=== PATIENT | female | born 1990 | race African-American/Black ===

== ENCOUNTER 2016-07-16 13:41 | Emergency (ER) | payer OTHER ==
[~2016-07-16] VITALS: Ht 167.6 cm; Wt 57.1 kg
[~2016-07-16 13:41] MED LIST: BACTRIM,SEPT1 TABLET PO; BENAZEPRIL HCL10 MG PO; CARBAMAZEPINE200 MG PO; CIPROFLOXACIN500 M1 PO; DEPO-PROVER150 MG/ML IM; DESYREL100 MG PO; DIVALPROEX SOD500 M1 PO; ELAVIL25 MG PO; EXCEDRIN MIGRA1 EACH PO; FIORICET 50-301 EACH PO; FLEXERIL10 MG PO; GABAPENTIN300 MG PO; HYDROCODON-ACE1 EA11 PO; IBUPROFEN800 MG PO; IMITREX100 MG PO; IMITREX4 MG/0.5 M SC; IMITREX6 MG/0.5 M SC; IMITREX6 MG/0.52 SC; INDOCIN25 MG PO; LATUDA60 MG PO; LORTAB 5-325 M1 EACH PO; LYRICA50 MG PO; NAPROSYN500 MG PO; NORCO 5/3251 TABLET PO; PAMELOR25 MG PO; PERCOCET 10/1 TABLET PO; PREDNISONE20 MG PO; PROMETHAZINE HC25 M1 PO; QUETIAPINE FUM100 MG PO; QUETIAPINE FUM200 MG PO; QUETIAPINE FUM300 MG PO; REGLAN10 MG PO; SAPHRIS10 MG SL; SEROQUEL100 MG PO; SEROQUEL300 MG PO; SKELAXIN800 MG PO; STRATTERA40 MG PO; TIZANIDINE HCL2 M1 PO; TRAMADOL HCL50 MG PO; ULTRACET1 TABLET PO; VALIUM5 MG PO; [UNRECOGNIZED DRUG - OTHER] TP
[2016-07-16 15:29] LABS: HEMATOCRIT 45.2 % (36.0-46.0); MCH 29.1 PG (29.0-34.0); MCHC 32.5 G/DL (30.0-36.0); MCV 89.3 FL (83-99); MEAN PLAT.VOLUME 10.5 uM^3 (9.5-12.4); PLATELET COUNT 200 K/uL (156-360); RBC DIS.WIDTH-CV 12.9 % (11.8-14.6); RBC DIS.WIDTH-SD 41.8 % (39-53); RED BLOOD COUNT 5.06 M/uL (3.80-5.20)
[2016-07-16 15:37] LABS: CHLORIDE 105 mEq/L (99-109); POTASSIUM 4.3 mEq/L (3.7-5.4); SODIUM 139 mEq/L (136-147)
[2016-07-16 15:39] LABS: GLUCOSE 81 mg/dL (70-99)
[2016-07-16 15:41] LABS: ANION GAP 12 MEQ/L (2-14); TOTAL BILIRUBIN 0.6 mg/dL (0.0-1.0)
[2016-07-16 15:43] LABS: ALKALINE PHOSPHATASE 60 IU/L (3-129); GFR ESTIMATE (CALCULATED) > 59 mL/min/
[2016-07-16 15:44] LABS: UREA NITROGEN (BUN) 10 mg/dL (9-23)
[2016-07-16 15:53] LABS: QUANTITATIVE HCG < 4.0 MIU/ML
[2016-07-16] MEDS ORDERED: FIORICET,ESG1 TABLET PO (16:44)
[2016-07-16] MEDS ORDERED: ZOFRAN ODT8 MG PO (16:44)
[2016-07-16 17:30] LABS: ADD MIUA? YES; BILIRUBIN NEGATIVE; BLOOD NEGATIVE; COLOR YELLOW ((YELLOW)); GLUCOSE (STRIP) NEGATIVE; KETONES NEGATIVE; LEUKOCYTES TRACE; NITRITE NEGATIVE; PH, URINE 6.5 (5-8); PROTEIN (STRIP) TRACE; SPECIFIC GRAVITY 1.022 (1.000-1.030); UROBILINOGEN 0.2 MG/DL (0.2-1.0)
[2016-07-16 17:57] LABS: RED BLOOD CELLS NONE SEEN /HPF (0-5); WHITE BLOOD CELLS RARE /HPF (0-5)
[2016-07-16 17:58] LABS: BACTERIA RARE; CASTS NONE SEEN /LPF; CRYSTALS NONE SEEN; EPITHELIAL CELLS 1+; MUCUS NONE SEEN; UCUL ADDED? NO
[2016-07-16 18:23] VITALS: BP 154/74
== END 2016-07-16 18:32 | disposition home or self-care (01) ==
LOC: EME 13:41
DX: R51 Headache (principal); R10.30 Lower abdominal pain, unspecified; I10 Essential (primary) hypertension; F17.200 Nicotine dependence, unspecified, uncomplicated; Z88.0 Allergy status to penicillin
CPT/HCPCS: 80053; 81003; 84702; 85027; 99281; 99284; J0780; J1100; J1885; J7030

== ENCOUNTER 2016-08-23 03:48 | Emergency (ER) | payer OTHER ==
[~2016-08-23] VITALS: Ht 167.6 cm; Wt 59.0 kg
[~2016-08-23 03:48] MED LIST changes: +FIORICET,ESG1 TABLET PO; +ZOFRAN ODT8 MG PO
[2016-08-23 03:53] VITALS: BP 125/91
== END 2016-08-23 07:42 | disposition left against medical advice (07) ==
LOC: EME 03:48
DX: R51 Headache (principal); R11.2 Nausea with vomiting, unspecified; H53.149 Visual discomfort, unspecified; Z53.21 Procedure and treatment not carried out due to patient leaving prior to being seen by health care provider

== ENCOUNTER 2016-11-03 15:38 | Inpatient (IN) | payer OTHER ==
[~2016-11-03] VITALS: Ht 167.6 cm; Wt 53.8 kg
[2016-11-03 15:50] LABS: EOSINOPHIL (%) 0.5 % (0-5); IMMATURE GRANULOCYTE (%) 0.2 % (0.0-0.7); INSTRUMENT ABS NEUTROPHIL CT 5.9 K/uL; LYMPHOCYTE COUNT 1.7 K/uL (1.0-2.8); MCH 29.3 PG (29.0-34.0); MCHC 32.5 G/DL (30.0-36.0); MCV 90.1 FL (83-99); MEAN PLAT.VOLUME 9.5 uM^3 (9.5-12.4); MONOCYTE (%) 8.9 % (3-12); MONOCYTE COUNT 0.7 K/uL (0-0.8); NEUTROPHIL (%) 70.3 % (45-76); NEUTROPHIL COUNT 5.9 K/uL (1.8-6.4); PLATELET COUNT 208 K/uL (156-360); RBC DIS.WIDTH-CV 12.9 % (11.8-14.6); RBC DIS.WIDTH-SD 42.8 % (39-53); RED BLOOD COUNT 4.44 M/uL (3.80-5.20); WHITE BLOOD COUNT 8.4 K/uL (4.1-10.2)
[2016-11-03 16:01] LABS: CHLORIDE 106 mEq/L (99-109); POTASSIUM 3.2 mEq/L (3.7-5.4); SODIUM 138 mEq/L (136-147)
[2016-11-03 16:02] LABS: GLUCOSE 110 mg/dL (70-99)
[2016-11-03 16:04] LABS: ANION GAP 12 MEQ/L (2-14)
[2016-11-03 16:06] LABS: GFR ESTIMATE (CALCULATED) > 59 mL/min/; SERUM ETHYL ALCOHOL < 10 mg/dL
[2016-11-03 16:08] LABS: UREA NITROGEN (BUN) 10 mg/dL (9-23)
[2016-11-03 16:09] LABS: SALICYLATE < 5.0 MG/DL (15-30)
[2016-11-03 16:15] LABS: QUANTITATIVE HCG < 4.0 MIU/ML
[2016-11-03 18:33] LABS: BASE EXCESS -2.1 mEq/L (-3 to +3); BICARBONATE 22.3 mEq/L (22-26); CARBOXY HGB 3.8 % (0-5); COMMENTS - BLOOD GASES A+C+; DEVICE RA; PCO2 36 mm Hg (35-45); PO2 97 mm Hg (80-100); SITE RR
[2016-11-03 18:34] LABS: FI02 0.21 %; TOTAL RESP RATE 12 resp/min
[2016-11-03 19:26] LABS: ADD MIUA? YES; BILIRUBIN NEGATIVE; BLOOD NEGATIVE; COLOR YELLOW ((YELLOW)); GLUCOSE (STRIP) NEGATIVE; KETONES 5; LEUKOCYTES MODERATE; NITRITE NEGATIVE; PROTEIN (STRIP) NEGATIVE; SPECIFIC GRAVITY 1.008 (1.000-1.030); UROBILINOGEN 0.2 MG/DL (0.2-1.0)
[2016-11-03 19:34] LABS: COCAINE PRESUMPTIVE POSITIVE (150 ng/mL); PHENCYCLIDINE NEGATIVE (25 ng/mL); THC CANNABINOIDS PRESUMPTIVE POSITIVE (50 ng/mL)
[2016-11-03 19:35] LABS: AMPHETAMINE NEGATIVE (500 ng/mL); BARBITURATES NEGATIVE (200 ng/mL); BENZODIAZEPINES NEGATIVE (150 ng/mL); INTERNAL CONTROLS VALID? YES; METHADONE NEGATIVE (200 ng/mL); METHAMPHETAMINE NEGATIVE (500 ng/mL); OPIATES (MORPHINE) PRESUMPTIVE POSITIVE (100 ng/mL); OXYCODONE NEGATIVE (100 ng/mL); PROPOXYPHENE NEGATIVE (300 ng/mL); TRICYCLIC ANTIDEPRESSANTS PRESUMPTIVE POSITIVE (300 ng/mL)
[2016-11-03 19:36] LABS: ADD MEDTOX COMMENT Y
[2016-11-03 19:40] LABS: BACTERIA RARE /HPF; EPITHELIAL CELLS RARE /HPF; MUCUS NONE SEEN /LPF; RED BLOOD CELLS 0-5 /HPF (0-5); UCUL ADDED? NO; WHITE BLOOD CELLS 0-5 /HPF (0-5)
[2016-11-03 20:19] LABS: OPIATES QUANTITATIVE VALUE 0 NG/ML
[2016-11-04] MEDS ORDERED: BENAZEPRIL HCL5 MG PO (00:17)
[2016-11-04 00:49] VITALS: BP 124/57
[2016-11-04 08:03] VITALS: BP 95/48
[2016-11-04 15:39] VITALS: BP 126/58
[2016-11-05 07:53] VITALS: BP 106/57
[2016-11-05] MEDS ORDERED: BENAZEPRIL HCL5 MG PO (10:35)
== END 2016-11-05 10:55 | disposition home or self-care (01) | DRG 885 ==
LOC: EME 15:38 → EDOF 21:13 → 1WEST 21:13
PROVIDERS: Emergency Medicine
DX: F31.4 Bipolar disorder, current episode depressed, severe, without psychotic features (principal); G89.29 Other chronic pain; I10 Essential (primary) hypertension; F41.9 Anxiety disorder, unspecified; Z88.0 Allergy status to penicillin; M54.9 Dorsalgia, unspecified; R45.851 Suicidal ideations; F17.200 Nicotine dependence, unspecified, uncomplicated; F19.10 Other psychoactive substance abuse, uncomplicated; F60.9 Personality disorder, unspecified
CPT/HCPCS: 36600; 80048; 81003; 82803; 84702; 84999; 85025; 90837; 93005; 97150 GO; 97165 GO; 99281; 99285; G0480; J2310

== ENCOUNTER 2017-06-25 22:34 | Emergency (ER) | payer OTHER ==
[~2017-06-25] VITALS: Ht 170.2 cm; Wt 63.0 kg
[~2017-06-25 22:34] MED LIST changes: +BENAZEPRIL HCL5 MG PO
[2017-06-26] MEDS ORDERED: DIFLUCAN150 MG PO (00:35)
[2017-06-26] MEDS ORDERED: CLEOCIN300 MG PO (00:35)
[2017-06-26] MEDS ORDERED: ULTRAM50 MG PO (00:40)
[2017-06-26 00:50] VITALS: BP 136/90
== END 2017-06-26 00:54 | disposition home or self-care (01) ==
LOC: EXP 22:34 → EME 22:34 → EXP 06-26 00:54
PROC: 3E0T3BZ Introduction of Anesthetic Agent into Peripheral Nerves and Plexi, Percutaneous Approach (ICD-10-PCS; principal; 2017-06-25)
DX: K08.89 Other specified disorders of teeth and supporting structures (principal); Z88.0 Allergy status to penicillin
CPT/HCPCS: 99281; 99284

== ENCOUNTER 2017-07-31 19:56 | Emergency (ER) | payer OTHER ==
[~2017-07-31] VITALS: Ht 167.6 cm; Wt 60.4 kg
[~2017-07-31 19:56] MED LIST changes: +CLEOCIN300 MG PO; +DIFLUCAN150 MG PO; +ULTRAM50 MG PO
[2017-07-31 22:08] LABS: HEMATOCRIT 39.4 % (36.0-46.0); HEMOGLOBIN 12.9 G/DL (11.9-15.5); MCH 29.9 PG (29.0-34.0); MCHC 32.7 G/DL (30.0-36.0); MCV 91.2 FL (83-99); PLATELET COUNT 225 K/uL (156-360); RBC DIS.WIDTH-CV 12.6 % (11.8-14.6); RBC DIS.WIDTH-SD 41.9 % (39-53); RED BLOOD COUNT 4.32 M/uL (3.80-5.20); WHITE BLOOD COUNT 5.8 K/uL (4.1-10.2)
[2017-07-31 22:19] LABS: CHLORIDE 106 mEq/L (99-109); POTASSIUM 4.1 mEq/L (3.7-5.4); SODIUM 137 mEq/L (136-147)
[2017-07-31 22:20] LABS: GLUCOSE 80 mg/dL (70-99)
[2017-07-31] MEDS ORDERED: FIORICET 50-301 EAC1 PO (22:21)
[2017-07-31] MEDS ORDERED: MEDROL DOSEPAK4 MG PO (22:21)
[2017-07-31 22:24] LABS: CREATININE 0.7 mg/dL (0.6-1.3); GFR ESTIMATE (CALCULATED) > 59 mL/min/
[2017-07-31 22:25] LABS: UREA NITROGEN (BUN) 11 mg/dL (9-23)
[2017-07-31 23:14] VITALS: BP 111/59
== END 2017-07-31 23:15 | disposition home or self-care (01) ==
LOC: EME 19:56 → RME 19:56
PROVIDERS: Physician Assistant
DX: J06.9 Acute upper respiratory infection, unspecified (principal); G43.109 Migraine with aura, not intractable, without status migrainosus; I10 Essential (primary) hypertension; F41.9 Anxiety disorder, unspecified; F32.9 Major depressive disorder, single episode, unspecified; F17.200 Nicotine dependence, unspecified, uncomplicated; Z91.5 Personal history of self-harm; Z88.0 Allergy status to penicillin
CPT/HCPCS: 71046; 80048; 85027; 87502; 99281; 99284; J1100; J1200; J1885

== ENCOUNTER 2017-08-22 15:40 | Emergency (ER) | payer OTHER ==
[~2017-08-22] VITALS: Ht 170.2 cm; Wt 57.2 kg
[~2017-08-22 15:40] MED LIST changes: +FIORICET 50-301 EAC1 PO; +MEDROL DOSEPAK4 MG PO
[2017-08-22] MEDS ORDERED: PERCOCET 5/31 TABLET PO (19:31)
[2017-08-22 19:42] VITALS: BP 140/88
== END 2017-08-22 19:43 | disposition home or self-care (01) ==
LOC: EME 15:40
DX: M54.2 Cervicalgia (principal); M54.9 Dorsalgia, unspecified; V43.52XA Car driver injured in collision with other type car in traffic accident, initial encounter; Y92.410 Unspecified street and highway as the place of occurrence of the external cause; F17.200 Nicotine dependence, unspecified, uncomplicated; Z88.0 Allergy status to penicillin
CPT/HCPCS: 72040; 99281; 99283

== ENCOUNTER 2017-11-18 18:09 | Emergency (ER) | payer OTHER ==
[~2017-11-18] VITALS: Ht 167.6 cm; Wt 61.3 kg
[~2017-11-18 18:09] MED LIST changes: +PERCOCET 5/31 TABLET PO
[2017-11-18 18:47] LABS: HEMATOCRIT 39.9 % (36.0-46.0); HEMOGLOBIN 13.1 G/DL (11.9-15.5); MCH 30.3 PG (29.0-34.0); MCHC 32.8 G/DL (30.0-36.0); MCV 92.1 FL (83-99); PLATELET COUNT 226 K/uL (156-360); RBC DIS.WIDTH-CV 12.5 % (11.8-14.6); RBC DIS.WIDTH-SD 42.8 % (39-53); RED BLOOD COUNT 4.33 M/uL (3.80-5.20); WHITE BLOOD COUNT 7.4 K/uL (4.1-10.2)
[2017-11-18 18:59] LABS: ALBUMIN 4.1 g/dL (3.2-4.8); CHLORIDE 106 mEq/L (99-109); POTASSIUM 4.3 mEq/L (3.7-5.4); SODIUM 139 mEq/L (136-147)
[2017-11-18 19:01] LABS: GLUCOSE 93 mg/dL (70-99); TOTAL PROTEIN 6.6 g/dL (6.4-8.3)
[2017-11-18 19:03] LABS: TOTAL BILIRUBIN 0.5 mg/dL (0.0-1.0)
[2017-11-18 19:05] LABS: ALKALINE PHOSPHATASE 51 IU/L (3-129); CREATININE 0.7 mg/dL (0.6-1.3); GFR ESTIMATE (CALCULATED) > 59 mL/min/
[2017-11-18 19:06] LABS: UREA NITROGEN (BUN) 10 mg/dL (9-23)
[2017-11-18 19:07] LABS: AST (GOT) 15 IU/L (2-34)
[2017-11-18 19:08] LABS: ALT (GPT) 6 IU/L (3-49); LIPASE 34 U/L (1.0-51.0)
[2017-11-18 19:22] LABS: QUANTITATIVE HCG < 4.0 MIU/ML
[2017-11-18 20:51] LABS: APPEARANCE SL.HAZY ((CLEAR)); BILIRUBIN NEGATIVE; BLOOD LARGE; COLOR YELLOW ((YELLOW)); GLUCOSE (STRIP) NEGATIVE; KETONES NEGATIVE; LEUKOCYTES SMALL; NITRITE NEGATIVE; PROTEIN (STRIP) 30; SPECIFIC GRAVITY 1.021 (1.000-1.030); UROBILINOGEN 0.2 MG/DL (0.2-1.0)
[2017-11-18 21:24] LABS: BACTERIA NONE SEEN /HPF; EPITHELIAL CELLS 1+ /HPF; MUCUS TRACE /LPF; RED BLOOD CELLS TNTC /HPF (0-5); UCUL ADDED? YES
[2017-11-18] MEDS ORDERED: PERCOCET 5/31 TABLET PO (21:49)
[2017-11-18] MEDS ORDERED: PEPCID20 MG PO (21:49)
[2017-11-18 22:17] VITALS: BP 152/87
== END 2017-11-18 22:17 | disposition home or self-care (01) ==
LOC: EME 18:09
PROVIDERS: Physician Assistant
DX: M54.31 Sciatica, right side (principal); G89.29 Other chronic pain; M54.9 Dorsalgia, unspecified; R10.9 Unspecified abdominal pain; F17.200 Nicotine dependence, unspecified, uncomplicated; Z88.0 Allergy status to penicillin
CPT/HCPCS: 80053; 81003; 83690; 84702; 85027; 87086; 99281; 99283; J1885; J8540

== ENCOUNTER 2017-12-19 20:06 | Emergency (ER) | payer OTHER ==
[~2017-12-19] VITALS: Ht 167.6 cm; Wt 61.3 kg
[~2017-12-19 20:06] MED LIST changes: +PEPCID20 MG PO
[2017-12-19] MEDS ORDERED: VALIUM2 MG PO (23:49)
[2017-12-19] MEDS ORDERED: LIDODERM 5% P1 PATCH TD (23:49)
[2017-12-19] MEDS ORDERED: NAPROXEN500 MG PO (23:49)
[2017-12-20 00:15] VITALS: BP 135/93
== END 2017-12-20 00:10 | disposition home or self-care (01) ==
LOC: EME 20:06 → RME 20:06
DX: M54.31 Sciatica, right side (principal); Z88.0 Allergy status to penicillin
CPT/HCPCS: J1100; J1885

== ENCOUNTER 2018-02-08 21:56 | Emergency (ER) | payer OTHER ==
[~2018-02-08] VITALS: Ht 167.6 cm; Wt 60.0 kg
[~2018-02-08 21:56] MED LIST changes: +LIDODERM 5% P1 PATCH TD; +NAPROXEN500 MG PO; +VALIUM2 MG PO
[2018-02-09] MEDS ORDERED: MOTRIN600 MG PO (00:17)
[2018-02-09 00:53] VITALS: BP 95/82
== END 2018-02-09 00:54 | disposition home or self-care (01) ==
LOC: EME 21:56
DX: S93.401A Sprain of unspecified ligament of right ankle, initial encounter (principal); W11.XXXA Fall on and from ladder, initial encounter; X50.1XXA Overexertion from prolonged static or awkward postures, initial encounter; F17.200 Nicotine dependence, unspecified, uncomplicated
CPT/HCPCS: 73610; 99281; 99284